=== PATIENT | male | born 1975 | race Caucasian/White ===

== ENCOUNTER 2023-01-17 08:38 | Day surgery (SDC) | payer MEDICAID ==
[~2023-01-17] VITALS: Ht 180.3 cm; Wt 86.2 kg
[2023-01-17] MEDS ORDERED: MEPERIDINE 100 MG INJ. 100 MG/ML VIAL ONE (09:05)
[2023-01-17] MEDS ORDERED: MIDAZOLAM HCL 5 MG/5 ML VIAL ONE ×2 (09:05→10:27)
[2023-01-17 14:17] VITALS: O2SAT 99
[2023-01-17 15:08] VITALS: BP_SYST 139; PULSE 60; RESP 16
== END 2023-01-17 10:20 | disposition home or self-care (01) ==
LOC: SDS 08:38 → SMU 08:39 → SDS 10:20
PROVIDERS: ATTEND Internal Medicine Gastroenterology
DX: Z12.11 Encounter for screening for malignant neoplasm of colon (principal); K29.50 Unspecified chronic gastritis without bleeding; K64.8 Other hemorrhoids; K21.9 Gastro-esophageal reflux disease without esophagitis; K64.9 Unspecified hemorrhoids; K44.9 Diaphragmatic hernia without obstruction or gangrene; E78.5 Hyperlipidemia, unspecified; Z80.0 Family history of malignant neoplasm of digestive organs; Z79.899 Other long term (current) drug therapy
CPT/HCPCS: 45378; 43239; 87081; 36415; 88305; 88312; 88313; 99152; 99153; G0378; J2250; J2175